=== PATIENT | male | born 1995 | race African-American/Black ===

== ENCOUNTER 2019-08-30 12:21 | Inpatient (IN) | payer MEDICAID ==
[~2019-08-30] VITALS: Ht 185.4 cm; Wt 76.7 kg
--- NOTE | 2019-08-30 12:21 | NUR ---
Patient BIBA ALS accompanied by Jelly EM, transferred to bed 4. RN evaluating patient at bedside.
--- NOTE | 2019-08-30 12:22 | NUR ---
Dr. Stevenson is evaluating the patient at bedside.
[2019-08-30] MEDS ORDERED: levETIRAcetam 1,000 MG in NACL 0.9% 100 ML IV ONE (12:25)
[2019-08-30] MEDS ORDERED: LORazepam 2 MG/ML VIAL IVP ONE ×2 (12:25→12:55)
[2019-08-30] MEDS ORDERED: NACL 0.9% 1,000 ML IV ONE ×2 (12:25→16:05)
[2019-08-30 12:30] VITALS: BP 140/65
[2019-08-30] MEDS ORDERED: ETOMIDATE 20 MG/10 ML VIAL IVP ONE (12:31)
[2019-08-30] MEDS ORDERED: SUCCINYLCHOLINE CHLORIDE 200 MG/10 ML VIAL IVP ONE (12:34)
[2019-08-30] MEDS ORDERED: ONDANSETRON 4 MG/2 ML VIAL IVP ONE (12:40)
--- NOTE | 2019-08-30 12:51 | NUR ---
PT TOO AGITATED AT THIS TIME TO COMPLETE AN EKG.
--- NOTE | 2019-08-30 13:02 | NUR ---
SPOKE TO PHARMACIST. RACHID MEDICATION TO BE PREPARED AND DELIVERED TO ER
--- NOTE | 2019-08-30 13:16 | NUR ---
URINE PLACED ON RED BOX IN DIRTY UTILITY ROOM PT CATH - IN/OUT
[2019-08-30] MEDS ORDERED: diphenhydrAMINE 50 MG/ML VIAL ONE (13:26)
[2019-08-30] MEDS ORDERED: diphenhydrAMINE 50 MG/ML VIAL IVP ONE (13:30)
[2019-08-30] MEDS ORDERED: MORPHINE SULFATE 4 MG/ML SYR IVP ONE (13:35)
--- NOTE | 2019-08-30 13:44 | NUR ---
Dr. Stevenson is re-evaluating the patient at bedside.
--- NOTE | 2019-08-30 13:46 | NUR ---
EKG PERFORMED AT BEDSIDE
--- NOTE | 2019-08-30 13:49 | NUR ---
PT RESTING IN BED, UNCOOPERATIVE, SZ PRECAUTIONS IN PLACE. VSS. SIDE RAIL X2
[2019-08-30] MEDS ORDERED: KETAMINE 10 MG/ML UD SYR **ER IVP ONE (14:10)
[2019-08-30 14:18] LABS: BILIRUBIN,URINE NEGATIVE (NEGATIVE); BLOOD, URINE 2+ (NEGATIVE); LEUKOCYTE ESTERASE ,URINE NEGATIVE (NEGATIVE); NITRITE, URINE NEGATIVE (NEGATIVE); PH,URINE 5.5 (5.0-9.0); UGLUCOSE NEGATIVE (NEGATIVE)
--- NOTE | 2019-08-30 14:18 | NUR ---
PT RESTING IN BED, SZ PRECAUTIONS IN PLACE. VSS. SIDE RAIL X2
[2019-08-30 14:28] LABS: APPEARANCE,URINE CLEAR (CLEAR); COLOR,URINE STRAW (YELLOW)
[2019-08-30 14:29] LABS: BARBITURATE, URINE NEGATIVE ng/ml (NEG <=200); BENZODIAZEPINE, URINE NEGATIVE ng/mL (NEG <=200); CANNABINOID, URINE POSITIVE ng/mL (NEG <=50); COCAINE, URINE NEGATIVE ng/mL (NEG <=300); OPIATE, URINE NEGATIVE ng/mL (NEG <=2000); PHENCYCLIDINE SCREEN,URINE NEGATIVE ng/mL (NEG <=25)
[2019-08-30 14:50] LABS: RBC,URINE 0-5 /HPF (0-5); WBC,URINE NONE SEEN /HPF (0-5)
--- NOTE | 2019-08-30 15:02 | NUR ---
OBTAINED BLOOD FROM PATIENT IN TEAMWORK WITH ER NURSES. BLOOD GIVEN PERSONALLY TO COMPUTER TYPESETTER
[2019-08-30 15:06] LABS: HEMATOCRIT 45.3 % (36-52); HEMOGLOBIN 14.7 g/dL (12.0-18.0); MEAN CORPUSCULAR HEMOGLOBIN 30 pg (27-31); MEAN CORPUSCULAR HGB CONC 32 g/dL (33-37); MEAN CORPUSCULAR VOLUME 92.1 fL (80-94); PLATELET COUNT (AUTO) 301 K/uL (140-450); RED BLOOD CELL COUNT(AUTO) 4.92 MIL/uL (4.20-6.10); RED CELL DISTRIBUTION WIDTH 13.7 % (11.6-13.7); WHITE BLOOD COUNT (AUTO) 19.2 K/uL (4.8-10.8)
--- NOTE | 2019-08-30 15:13 | NUR ---
PT TAKEN TO CT VIA [facility]
--- NOTE | 2019-08-30 15:20 | NUR ---
Patient returned from CT scan. RN re-evaluating the patient at bedside.
[2019-08-30 15:24] LABS: ALBUMIN 4.5 g/dL (3.4-5.0); ANION GAP 14.4 (8-16); ASPARTATE AMINOTRANSFERASE 36 U/L (15-37); CARBON DIOXIDE 24.3 mmol/L (21-32); CHLORIDE 106 mmol/L (98-107); CREATININE 1.3 mg/dL (0.6-1.3); GFR ARICAN-AMERICAN 86 mL/min (>90); GLUCOSE 74 mg/dL (74-106); LYMPHOCYTES % (MANUAL) 11 % (20-46); MONOCYTES % (MANUAL) 6 % (5-12); POTASSIUM 4.7 mmol/L (3.5-5.1); SODIUM SERUM 140 mmol/L (136-145); TOTAL BILIRUBIN 0.6 mg/dL (0.0-1.0); UREA NITROGEN, BLOOD 13 mg/dL (7-18)
--- NOTE | 2019-08-30 15:30 | NUR ---
electroplating technician at bedside.
--- NOTE | 2019-08-30 15:38 | NUR ---
PT RESTING IN BED, SIDE RAIL X2
[2019-08-30 15:57] LABS: ACETAMINOPHEN < 0.5 ug/ml (10-30); SALICYLATE < 2.8 mg/dL (2.8-20.0)
[2019-08-30] MEDS ORDERED: NACL 0.9% 1,000 ML IV SCH (16:19)
[2019-08-30] MEDS ORDERED: ZOLPIDEM 5 MG TAB PO PRN (16:20)
[2019-08-30] MEDS ORDERED: LORazepam 2 MG/ML VIAL IM/IVP PRN (16:20)
[2019-08-30] MEDS ORDERED: ONDANSETRON 4 MG/2 ML VIAL IM/IVP PRN (16:20)
[2019-08-30] MEDS ORDERED: ACETAMINOPHEN 325 MG TAB PO PRN (16:20)
[2019-08-30] MEDS ORDERED: DOCUSATE SODIUM 100 MG GELCAP PO PRN (16:20)
[2019-08-30] MEDS ORDERED: MORPHINE SULFATE 2 MG/ML SYR IVP PRN (16:20)
[2019-08-30] MEDS ORDERED: HYDROcodone/APAP 5/325 MG 1 TAB TAB PO PRN (16:20)
[2019-08-30] MEDS ORDERED: LORazepam 2 MG/ML VIAL IVP PRN (16:30)
[2019-08-30 16:46] LABS: CKMB RELATIVE INDEX 0.7 (0.0-2.5)
--- NOTE | 2019-08-30 16:50 | NUR ---
PT UNCOOPERATIVE TO OBTAIN BLOOD CULTURE, LAB TO TRY AGAIN LATER
[2019-08-30 17:00] VITALS: BP 146/76
--- NOTE | 2019-08-30 17:00 | NUR ---
RECEIVED BEDSIDE REPORT FROM ER NURSE FOR CONTINUITY OF CARE, PT ASLEEP IN BED, NO SIGNS OF DISTRESS NOTED, RESPIRATIONS ARE EVEN AND UNLABORED ON ROOM AIR, SEIZURE PRECAUTIONS IN PLACE, BED IN LOW POSITION, TOOK MRSA SWAB, PT HAS RIGHT AND LEFT UPPER ARM 20G IV, UPDATED WHITE BOARD, BED ALARM ON , PT IS STABLE, WILL CONTINUE TO MONITOR, CALL LIGHT WITHIN REACH.
--- NOTE | 2019-08-30 17:03 | NUR ---
Patient will be admitted to care of [facility]. Admited to TELEMETRY. Will go to room 108B. Belongings list completed. Report to QUEENIE CLEMENT.
[2019-08-30 17:16] LABS: PROTHROMBIN TIME 11.8 secs (10.8-13.4)
[2019-08-30 17:18] LABS: MAGNESIUM 2.1 mg/dL (1.8-2.4); PHOSPHORUS 2.4 mg/dL (2.5-4.9); THYROID STIMULATING HORMONE 1.04 uIU/mL (0.34-3.74)
[2019-08-30] MEDS ORDERED: LACTULOSE 20 GM/30 ML UDC PO SCH ×2 (18:05→21:00)
--- NOTE | 2019-08-30 19:29 | NUR ---
GAVE REPORT TO NIGHT NURSE FOR CONTINUITY OF CARE, PT STABLE
--- NOTE | 2019-08-30 19:30 | NUR ---
RECEIVED BEDSIDE ENDORSEMENT FROM AM SHIFT RN. PATIENT IS LYING ON BED, SLEEPING. RESPIRATION EVEN AND UNLABORED. NO SOB. NO SEIZURE. IV SITE AT BIGG 2OG, INTACT INFUSING IVF AT 60CC/HR. FALL RISK PROTOCOL INITIATED AT ALL TIMES. SEIZURE PROTECTION IN PLACE. PATIENT HAS A NECK BRACE. PLAN OF CARE WAS DISCUSSED. CALL LIGHT WITHIN REACH. WILL CONTINUE TO MONITOR. LACTIC ACID IS 2.1. IT IS TRENDING DOWN. INFORMED RESIDENT DR. DELEON. WILL CONTINUE TO MONITOR.
[2019-08-30 20:00] VITALS: BP 136/69
[2019-08-30] MEDS ORDERED: cefTRIAXone 1,000 MG VIAL ONE (20:00)
--- NOTE | 2019-08-30 20:09 | NUR ---
ROCEPHINE IV GIVEN PER ENDORSEMENT BY AM NURSE. NO A/R NOTED. TOLERATED WELL. WILL CONTINUE TO MONITOR.
--- NOTE | 2019-08-30 21:19 | NUR ---
DUE MEDS GIVEN ORDERED. TOLERATED WELL. NO A/R NOTED. MED EDUCATION PROVIDED. PATIENT DENIES PAIN. NOT IN ANY ACUTE DISTRESS. RESPIRATION EVEN AND UNLABORED. WILL CONTINUE TO MONITOR.
--- NOTE | 2019-08-30 23:19 | NUR ---
PATIENT IS SLEEPING. RESPIRATION EVEN AND UNLABORED. NOT IN ANY ACUTE DISTRESS. CALL LIGHT WITHIN REACH. WILL CONTINUE TO MONITOR.
[2019-08-31] VITALS: BP 106/73
--- NOTE | 2019-08-31 02:04 | NUR ---
PATIENT IS ASLEEP. NO SOB NOTED. WILL CONTINUE TO MONITOR.
[2019-08-31 04:00] VITALS: BP 132/66
--- NOTE | 2019-08-31 04:15 | NUR ---
PATIENT IS RESTING. RESPIRATION EVEN AND UNLABORED. PATIENT VERBALIZED "I WANT TO GO HOME." I EXPLAINED THAT THE DOCTOR NEEDS TO SEE IF THE BLOOD TEST RESULT IS OKAY AND THAT I WILL TELL THE DOCTOR ABOUT HIS CONCERN. NO SOB. DENIES PAIN. CALL LIGHT WITHIN REACH. WILL CONTINUE TO MONITOR.
[2019-08-31 06:46] LABS: BASOPHILS # (AUTO) 0.1 K/uL (0.00-0.22); BASOPHILS % (AUTO) 0.7 % (0.0-2.0); EOSINOPHILS % (AUTO) 0.4 % (0.0-4.0); HEMATOCRIT 43.3 % (36-52); HEMOGLOBIN 14.3 g/dL (12.0-18.0); LYMPHOCYTES # (AUTO) 1.3 K/uL (2.0-11.5); LYMPHOCYTES % (AUTO) 10.6 % (20.5-51.1); MEAN CORPUSCULAR HEMOGLOBIN 31 pg (27-31); MEAN CORPUSCULAR HGB CONC 33 g/dL (33-37); MEAN CORPUSCULAR VOLUME 92.4 fL (80-94); MONOCYTES % (AUTO) 8.3 % (1.7-9.3); NEUTROPHILS # (AUTO) 9.5 K/uL (1.8-7.7); PLATELET COUNT (AUTO) 292 K/uL (140-450); RED BLOOD CELL COUNT(AUTO) 4.69 MIL/uL (4.20-6.10); RED CELL DISTRIBUTION WIDTH 13.7 % (11.6-13.7); WHITE BLOOD COUNT (AUTO) 11.9 K/uL (4.8-10.8)
[2019-08-31 07:07] LABS: ANION GAP 17.8 (8-16); CARBON DIOXIDE 24.2 mmol/L (21-32); CREATININE 1.1 mg/dL (0.6-1.3)
--- NOTE | 2019-08-31 07:15 | NUR ---
PATIENT IS AWAKE. NO SOB. DENIES PAIN. ENDORSED PATIENT AT BEDSIDE TO AM SHIFT RN FOR CONTINUITY OF CARE.
--- NOTE | 2019-08-31 07:17 | NUR ---
RECEIVED PATIENT FROM NIGHT NURSE. PATIENT IS AWAKE AND ALERT. NO NOTED RESPIRATORY DISTRESS, CONTINUE ON RA. RH 22 AND PATIENT. PATIENT IS AMBULATORY WITH ASSIST OF WALKER, INSTRUCTED PATIENT TO USE CALL LIGHT FOR HELP NEEDED. CALL LIGHT WITHIN REACH.WILL CONTINUE WITH CARE Addendum: 08/31/19 at 1111 by Yuri Jane RN CORRECTION TO ABOVE NOTE. RECEIVED PATIENT FROM NIGHT NURSE. PATIENT IS AWAKE AND ALERT. NO NOTED RESPIRATORY DISTRESS, CONTINUE ON RA. CALL LIGHT WITHIN REACH. WILL CONTINUE WITH CARE.
[2019-08-31 07:34] LABS: CHOL/HDL RATIO 1.7 (1-4.5)
--- NOTE | 2019-08-31 07:55 | NUR ---
PATIENT WANTS TO LEAVE AMA BECAUSE HE DOESN'T WANT TO BE HERE AND HE'S FEELING BETTER. DR MILLER NOTIFIED AND SPOKE TO PATIENT ABOUT RISKS OF LEAVING AMA. PATIENT VERBALIZED UNDERSTANDING AND STILL WANTED TO LEAVE AMA. NO NOTED DISTRESS AT TIME. ALL BELONGINGS RETURNED TO PATIENT. IV SITES REMOVED AND REMAINED INTACT. PATIENT LEFT AMA AT THIS TIME.
[2019-08-31] MEDS ORDERED: LACTOBACILLUS RHAMNOSUS GG 1 EACH CAP PO SCH (09:00)
== END 2019-08-31 07:55 | disposition left against medical advice (07) | DRG 53 ==
LOC: MED 12:21 → MTU 16:08
PROVIDERS: ADMIT General Practice; ATTEND General Practice
DX: G40.89 Other seizures (principal); E87.2 Acidosis; K72.90 Hepatic failure, unspecified without coma; E83.39 Other disorders of phosphorus metabolism; J45.909 Unspecified asthma, uncomplicated; F17.210 Nicotine dependence, cigarettes, uncomplicated; D72.829 Elevated white blood cell count, unspecified; Z53.29 Procedure and treatment not carried out because of patient's decision for other reasons; F43.0 Acute stress reaction
CPT/HCPCS: 36415; 70450; 71045; 80048; 80053; 80305; 81001; 82140; 82550; 82553; 83036; 83605; 83690; 83735; 83880; 84100; 84134; 84443; 85025; 85610; 85730; 87040; 87081; 87086; 93005; 96361; 96365; 96375; 99291; G0480; G0482; J0330; J0696; J1200; J1953; J2060; J2270; J2405; J3490; J7060; Q0092

== ENCOUNTER 2022-02-21 09:12 | Emergency (ER) | payer MEDICAID, OTHER ==
[~2022-02-21] VITALS: Ht 180.3 cm; Wt 86.2 kg
[2022-02-21] MEDS ORDERED: ONDANSETRON 4 MG/2 ML VIAL ONE (09:13)
[2022-02-21] MEDS ORDERED: ONDANSETRON 4 MG/2 ML VIAL IVP ONE (09:15)
[2022-02-21] MEDS ORDERED: LORazepam 2 MG/ML VIAL ONE ×2 (09:22→09:37)
[2022-02-21 09:31] VITALS: BP 117/65
[2022-02-21] MEDS ORDERED: LORazepam 2 MG/ML VIAL IVP ONE ×2 (09:50)
[2022-02-21] MEDS ORDERED: MIDAZOLAM 5 MG/5 ML VIAL ONE (10:04)
[2022-02-21] MEDS ORDERED: MIDAZOLAM 5 MG/5 ML VIAL IV ONE (10:20)
[2022-02-21 10:36] LABS: APPEARANCE,URINE CLEAR (CLEAR); BILIRUBIN,URINE NEGATIVE (NEGATIVE); BLOOD, URINE 2+ (NEGATIVE); COLOR,URINE YELLOW (YELLOW); LEUKOCYTE ESTERASE ,URINE NEGATIVE (NEGATIVE); NITRITE, URINE NEGATIVE (NEGATIVE); PH,URINE 5.5 (5.0-9.0); UGLUCOSE 1+ (NEGATIVE)
[2022-02-21 10:44] LABS: BARBITURATE, URINE NEGATIVE ng/ml (NEG <=200); BENZODIAZEPINE, URINE NEGATIVE ng/mL (NEG <=200); CANNABINOID, URINE POSITIVE ng/mL (NEG <=50); COCAINE, URINE NEGATIVE ng/mL (NEG <=300)
[2022-02-21 10:45] LABS: OPIATE, URINE NEGATIVE ng/mL (NEG <=2000); PHENCYCLIDINE SCREEN,URINE NEGATIVE ng/mL (NEG <=25)
[2022-02-21 10:50] LABS: OTHER CASTS, URINE None Seen /LPF (None Seen); WBC,URINE 0-5 /HPF (0-5)
[2022-02-21 10:58] LABS: BASOPHILS % (AUTO) 0.1 % (0.0-2.0); EOSINOPHILS % (AUTO) 0.1 % (0.0-4.0); HEMATOCRIT 44.9 % (36-52); HEMOGLOBIN 14.6 g/dL (12.0-18.0); LYMPHOCYTES # (AUTO) 0.8 K/uL (2.0-11.5); LYMPHOCYTES % (AUTO) 3.9 % (20.5-51.1); MEAN CORPUSCULAR HEMOGLOBIN 30 pg (27-31); MEAN CORPUSCULAR HGB CONC 33 g/dL (33-37); MEAN CORPUSCULAR VOLUME 93.2 fL (80-94); MONOCYTES # (AUTO) 1.2 K/uL (0.8-1.0); MONOCYTES % (AUTO) 6.1 % (1.7-9.3); NEUTROPHILS # (AUTO) 17.9 K/uL (1.8-7.7); NEUTROPHILS % (AUTO) 89.8 % (42.2-75.2); PLATELET COUNT (AUTO) 271 K/uL (140-450); RED BLOOD CELL COUNT(AUTO) 4.82 MIL/uL (4.20-6.10); RED CELL DISTRIBUTION WIDTH 14.2 % (11.6-13.7)
[2022-02-21 12:45] LABS: ALBUMIN 4.5 g/dL (3.4-5.0); ANION GAP 13.5 (8-16); CARBON DIOXIDE 25.1 mmol/L (21-32); CREATININE 1.3 mg/dL (0.6-1.3); POTASSIUM 4.6 mmol/L (3.5-5.1); TOTAL BILIRUBIN 0.3 mg/dL (0.0-1.0)
[2022-02-21 14:30] VITALS: BP 111/67
== END 2022-02-21 14:52 | disposition home or self-care (01) ==
LOC: MED 09:12
DX: R56.9 Unspecified convulsions (principal); J45.909 Unspecified asthma, uncomplicated
CPT/HCPCS: 36415; 80053; 80299; 80305; 81001; 82550; 82553; 85025; 96374; 96375; 96376; 99284; J2060; J2250; J2405; 81002

== ENCOUNTER 2022-06-21 15:24 | Emergency (ER) | payer SELFPAY ==
[~2022-06-21] VITALS: Ht 182.9 cm; Wt 76.2 kg
[2022-06-21 15:28] VITALS: BP 102/57
[2022-06-21] MEDS ORDERED: NACL 0.9% 1,000 ML IV ONE (17:10)
[2022-06-21] MEDS ORDERED: ONDANSETRON 4 MG/2 ML VIAL IVP ONE (17:10)
--- NOTE | 2022-06-21 17:25 | NUR ---
SEIZURE PRECAUTIONS, PADDED SIDERAILS. FATHER AT BEDSIDE
[2022-06-21 17:33] LABS: APPEARANCE,URINE CLEAR (CLEAR); BILIRUBIN,URINE NEGATIVE (NEGATIVE); BLOOD, URINE TRACE-I (NEGATIVE); COLOR,URINE YELLOW (YELLOW); LEUKOCYTE ESTERASE ,URINE NEGATIVE (NEGATIVE); NITRITE, URINE NEGATIVE (NEGATIVE); UGLUCOSE NEGATIVE (NEGATIVE)
[2022-06-21 17:34] LABS: BASOPHILS % (AUTO) 0.2 % (0.0-2.0); HEMATOCRIT 43.6 % (36-52); HEMOGLOBIN 14.5 g/dL (12.0-18.0); LYMPHOCYTES # (AUTO) 0.5 K/uL (2.0-11.5); LYMPHOCYTES % (AUTO) 2.6 % (20.5-51.1); MEAN CORPUSCULAR HEMOGLOBIN 30 pg (27-31); MEAN CORPUSCULAR HGB CONC 33 g/dL (33-37); MEAN CORPUSCULAR VOLUME 89.7 fL (80-94); MONOCYTES # (AUTO) 1.5 K/uL (0.8-1.0); MONOCYTES % (AUTO) 8.1 % (1.7-9.3); NEUTROPHILS # (AUTO) 16.9 K/uL (1.8-7.7); NEUTROPHILS % (AUTO) 89.1 % (42.2-75.2); PLATELET COUNT (AUTO) 278 K/uL (140-450); RED BLOOD CELL COUNT(AUTO) 4.86 MIL/uL (4.20-6.10); RED CELL DISTRIBUTION WIDTH 14.1 % (11.6-13.7); WHITE BLOOD COUNT (AUTO) 18.9 K/uL (4.8-10.8)
[2022-06-21 17:51] LABS: ALBUMIN 4.9 g/dL (3.4-5.0); ANION GAP 15.6 (8-16); ASPARTATE AMINOTRANSFERASE 44 U/L (15-37); CARBON DIOXIDE 23.9 mmol/L (21-32); CHLORIDE 97 mmol/L (98-107); CREATININE 1.5 mg/dL (0.6-1.3); GFR ARICAN-AMERICAN 71 mL/min (>90); GLUCOSE 91 mg/dL (74-106); POTASSIUM 5.5 mmol/L (3.5-5.1); SODIUM SERUM 131 mmol/L (136-145); TOTAL BILIRUBIN 0.4 mg/dL (0.0-1.0); UREA NITROGEN, BLOOD 22 mg/dL (7-18)
[2022-06-21 17:51] LABS: BARBITURATE, URINE NEGATIVE ng/ml (NEG <=200); BENZODIAZEPINE, URINE NEGATIVE ng/mL (NEG <=200); CANNABINOID, URINE POSITIVE ng/mL (NEG <=50); COCAINE, URINE NEGATIVE ng/mL (NEG <=300); OPIATE, URINE NEGATIVE ng/mL (NEG <=2000); PHENCYCLIDINE SCREEN,URINE NEGATIVE ng/mL (NEG <=25); RBC,URINE 0-5 /HPF (0-5); WBC,URINE 0-5 /HPF (0-5)
[2022-06-21 19:00] VITALS: BP 152/60
--- NOTE | 2022-06-21 19:30 | NUR ---
Patient discharged with v/s stable. Written and verbal after care instructions given and explained. Patient verbalized understanding. Ambulatory with steady gait. All questions addressed prior to discharge. Advised to follow up with PMD.tolerated cups of water, no nausea or vomiting, no seizure episodes in the ed
== END 2022-06-21 19:28 | disposition home or self-care (01) ==
LOC: MED 15:24
DX: G40.89 Other seizures (principal); E86.0 Dehydration; J45.909 Unspecified asthma, uncomplicated; F17.210 Nicotine dependence, cigarettes, uncomplicated; Z79.899 Other long term (current) drug therapy
CPT/HCPCS: 36415; 80053; 80305; 81001; 82550; 82553; 85025; 93005; 96361; 96374; 99284; J2405; J7030

== ENCOUNTER 2023-11-24 06:05 | Emergency (ER) | payer BC ==
[~2023-11-24] VITALS: Ht 182.9 cm; Wt 80.7 kg
[2023-11-24 06:08] VITALS: BP 136/58; PULSE 88; RESP 16; TEMP 97.2; O2SAT 99
[2023-11-24] MEDS ORDERED: IBUP-2213 PO (06:31)
[2023-11-24] MEDS ORDERED: CEPH-588 PO (06:31)
[2023-11-24] MEDS: KETOROLAC 60 MG/2 ML VIAL IM ONE (06:40)
== END 2023-11-24 06:50 | disposition home or self-care (01) ==
LOC: MED 06:05
DX: S61.501A Unspecified open wound of right wrist, initial encounter (principal); L08.89 Other specified local infections of the skin and subcutaneous tissue; J45.909 Unspecified asthma, uncomplicated; F12.90 Cannabis use, unspecified, uncomplicated; Z86.69 Personal history of other diseases of the nervous system and sense organs; Z79.899 Other long term (current) drug therapy; X58.XXXA Exposure to other specified factors, initial encounter; Y92.89 Other specified places as the place of occurrence of the external cause; Y93.89 Activity, other specified; Y99.8 Other external cause status
CPT/HCPCS: 96372; 99283; J1885